=== PATIENT | female | born 1940 | race Caucasian/White ===

== ENCOUNTER → 2016-11-15 | Outpatient (CLI) | payer OTHER ==
[~2016-11-15] MED LIST: ALLEGRA PO; AMLODIPINE BESYL5 MG PO; ASPIRIN81 M2 PO; COZAAR100 MG PO; LIPITOR40 MG PO; METOPROLOL TAR100 MG PO; OMEGA-3 KRILL1 EAC3 PO; STOOL SOFTENER100 M1 PO; VITAMIN D32000 UNIT PO
--- NOTE | ~2016-11-15 | MY11 ---
[facility] A Service of [facility] RADIOLOGY TEXT RESULTS PATIENT: JUANITA MAGALLANES LOCATION: [facility] : 38 UNIT #: [id number] AGE: [address]: Isidro Shah MD SEX: F ORDER DR: [id number] [place] [id number] O MR#: [id number] Acc #: [id number] NAME: JUANITA MAGALLANES : 1940 SEX: F STUDY DATE/TIME: 11/15/2016 14:17 UNIT: [facility] ROOM: STUDY DESCRIPTION: MY Mammogram Screening Dig Jun Attending Physician: Isidro Shah M.D. Referring Physician: Isidro Shah M.D. Ordering Physician: Isidro Shah M.D. Primary Care Physician: Isidro Shah M.D. MEDICAL IMAGING REPORT This report is preliminary unless electronic signature is present. EXAM Bilateral digital screening mammogram with CAD 11/15/2016 INDICATIONS Routine screening. No reported problems and no personal or family history of breast cancer. No surgeries. TECHNIQUE CC and MLO views of the breast were obtained and reviewed with an approved CAD device. COMPARISON STUDIES 01/23/2015, 01/11/2014 and 12/07/2012 FINDINGS Breast parenchyma is heterogeneously dense. This degrades sensitivity screening mammography. Pattern is unchanged. Mole markers are present. There is a nodular density in the upper outer right breast. It measures about 6 mm. There is no distinct correlate on the prior imaging studies and further evaluation with additional spot compression views and a true lateral view is recommended. If an abnormality persists it should be further assessed with ultrasound. There is otherwise no new dominant nodule mass or suspicious cluster of microcalcifications. Benign calcifications are present. IMPRESSION 6 mm nodular asymmetry in the right breast warrants further evaluation with additional views and potentially breast ultrasound. BIRADS 0 [facility] A Service of [facility] RADIOLOGY TEXT RESULTS PATIENT: JUANITA MAGALLANES LOCATION: [facility] : 38 UNIT #: [id number] AGE: [address]: Isidro Shah MD SEX: F ORDER DR: Patients over the age of 40 are entered into a reminder system with target due date for the next mammogram. A result letter will also be sent to the patient. BIRADS: 0 Need Additional Imaging Evaluation and/or Prior Mammograms for Comparison Dictated by... Regulo Smith M.D. THIS IS AN ELECTRONICALLY VERIFIED REPORT Regulo Smith M.D. at 11/18/2016 7:31 AM Michael TD: 11/15/2016 21:00 JOB #: [id number] MEDICAL IMAGING REPORT Page 1 of 1
== END | disposition home or self-care (01) ==
LOC: SMAM 13:17
DX: Z12.31 Encounter for screening mammogram for malignant neoplasm of breast (principal); N64.89 Other specified disorders of breast
CPT/HCPCS: G0202

== ENCOUNTER → 2016-11-25 | Outpatient (CLI) | payer OTHER ==
--- NOTE | ~2016-11-25 | MY8 ---
[facility] A Service of [facility] RADIOLOGY TEXT RESULTS PATIENT: JUANITA MAGALLANES LOCATION: [facility] : 38 UNIT #: [id number] AGE: [address]: Isidro Shah MD SEX: F ORDER DR: [id number] [facility] [address] [place], [place] [address] [id number] O MR#: [id number] Acc #: [id number] NAME: JUANITA MAGALLANES : 1940 SEX: F STUDY DATE/TIME: 11/25/2016 14:45 UNIT: [facility] ROOM: STUDY DESCRIPTION: MY Mammogram Dx Dig Rt Attending Physician: Isidro Shah M.D. Referring Physician: Isidro Shah M.D. Ordering Physician: Isidro Shah M.D. Primary Care Physician: Isidro Shah M.D. MEDICAL IMAGING REPORT This report is preliminary unless electronic signature is present EXAM Right breast additional views mammogram, 11/25 INDICATIONS Nodule seen in the upper outer right breast on recent screening exam. FINDINGS Rolled medial and lateral CC views of the right breast were obtained in addition to a standard true lateral view and spot compression CC and MLO views. Study is reviewed with an FDA-approved CAD device. Comparison made with all the patient's prior mammograms dating back to 11/27/2010. The small, circumscribed nodule persists on the images today. However, in retrospect, it can be located on the patient's prior mammograms dating back to 2010. This is a small benign nodule and no further evaluation is indicated at this time. Findings were discussed with the patient at the time of her examination today. IMPRESSION Benign mammogram. Small nodule has been present dating back to 2010. Patient should continue with routine yearly mammographic screening. Patients over the age of 40 are entered into a reminder system with target due date for the next mammogram. A result letter will also be sent to the patient. BIRADS: 2 Benign Finding Dictated by... Ayo Harding Jr., M.D. [facility] A Service of [facility] RADIOLOGY TEXT RESULTS PATIENT: JUANITA MAGALLANES LOCATION: [facility] : 38 UNIT #: [id number] AGE: [address]: Isidro Shah MD SEX: F ORDER DR: THIS IS AN ELECTRONICALLY VERIFIED REPORT Ayo Harding Jr., M.D. at 11/25/2016 5:05 PM TITI/galileo TD: 11/25/2016 16:24 JOB #: [id number] MEDICAL IMAGING REPORT Page 1 of 1 COPY
== END | disposition home or self-care (01) ==
LOC: CMAM 14:26
DX: R91.8 Other nonspecific abnormal finding of lung field (principal); N60.01 Solitary cyst of right breast
CPT/HCPCS: G0206